=== PATIENT | female | born 1980 | race Caucasian/White ===

== ENCOUNTER 2016-03-16 11:49 | Outpatient (CLI) | payer OTHER ==
[2016-03-16 12:14] LABS: #Basophils 0.1 thou/uL (0.0-0.2); #Eosinphils 0.4 thou/uL (0.0-0.7); #Lymphocytes 3.1 thou/uL (1.20-3.40); #Monocytes 0.6 thou/uL (0.11-0.59); #Neutrophils 4.7 thou/uL (1.40-6.50); %Basophils 1.2 % (0.0-1.0); %Eosinophils 4.6 % (0.0-10.0); %Monocytes 7.1 % (0.0-10.0); Hematocrit 44.8 % (36.0-47.0); Mean Platelet Volume 6.5 fL (7.4-10.4); Red Blood Cell (RBC) Count 5.24 mill/uL (4.20-5.40)
[2016-03-16 12:28] LABS: ALT (SGPT) 20 U/L (0-55); AST (SGOT) 18 U/L (5-34); Alkaline Phosphatase 106 U/L (40-150); Anion Gap 15 mmol/L (10-20); BUN (Urea Nitrogen) 11 mg/dL (7.0-18.7); Bilirubin, Total 0.4 mg/dL (0.2-1.2); Calc. Creatinine Clearance 0 mL/min (70-130); Calcium 9.3 mg/dL (7.8-10.44); Carbon Dioxide 24 mmol/L (22-29); Chloride 107 mmol/L (98-107); Estimated GFR-MDRD 76; Globulin 3.3 g/dL (2.4-3.5); LDL Cholesterol, Calculated 158 mg/dL; Protein, Total 7.7 g/dL (6.0-8.3)
== END 2016-03-16 11:50 | disposition home or self-care (01) ==
LOC: BURLAB 11:49
PROVIDERS: ATTEND Family Medicine
DX: Z00.00 Encounter for general adult medical examination without abnormal findings (principal)
CPT/HCPCS: 36415; 80053; 80061; 84443; 85025

== ENCOUNTER 2016-06-10 08:27 | Outpatient (CLI) | payer OTHER | END 2016-06-10 08:28 | LOC: LABLEX 08:27 | PROVIDERS: ATTEND Family Medicine | DX: R10.30 Lower abdominal pain, unspecified (principal) | CPT/HCPCS: 87086 ==

== ENCOUNTER 2016-06-10 08:38 | Outpatient (CLI) | payer OTHER ==
--- NOTE | 2016-06-10 20:26 | ULT ---
ABDOMINAL ULTRASOUND: 06/10/16 Ultrasonography of the abdomen was performed for low abdominal pain. Review of an 10/04/08 ultrasound was done. The liver is generous in size measuring between 15 and 16 cm in length. It is not seen well internal ly, but no gross lesions were seen. The gallbladder contains gallstones. The wall is 3 mm thick. The common bile duct is 7 mm wide, which is slightly large. The pancreas is seen incompletely, but the visible areas were normal. The aorta and IVC were unremarkable. The right kidney was 10.5 cm in hien th and the left was 12.2 cm. Both appear normal. The spleen is normal in size. IMPRESSION: 1. Multiple gallstones, present previously. Gallbladder wall is slightly thick and common bile duct is slighty large. 2. Borderline hepatic size. POS: HOME
--- NOTE | 2016-06-10 20:32 | ULT ---
PELVIC ULTRASOUND WITH TRANSVAGINAL IMAGING 06/10/16 Ultrasonography of the pelvis was performed for evaluation of pelvic pain. Initial images were done with the abdominal transducer and anatomy was seen very poorly. This was followed with the endovagin al probe which was better able to define detail, though it is still less than optimal. The uterus grossly appears normal and measures 7.9 x 4.4 x 3.8 cm. The endometrium is a normal 6 mm in width. The right ovary was 2.5 cm in length and the left was 1.6 cm. No mass or cysts were seen in either. Blood flow was present in each. A small Nabothian cyst was seen at the cervix that measured about 1 cm in size. There was no substan tial free fluid. IMPRESSION: No significant pelvic findings. POS: HOME
== END 2016-06-10 08:39 | disposition home or self-care (01) ==
LOC: BURULT 08:38
PROVIDERS: ATTEND Family Medicine
DX: R10.31 Right lower quadrant pain (principal); R10.2 Pelvic and perineal pain; K80.20 Calculus of gallbladder without cholecystitis without obstruction; K83.8 Other specified diseases of biliary tract
CPT/HCPCS: 76700; 76856

== ENCOUNTER 2020-02-23 11:13 | Emergency (ER) | payer BC ==
[2020-02-23 11:46] LABS: Bilirubin Small (Negative); Blood, Urine Small (Negative); Clarity Cloudy (Clear); Glucose, Urine (Dipstick) Negative (Negative); Ketone, Urine Negative (Negative); Leukocyte Negative (Negative); Nitrite Negative (Negative); Protein, Urine (Dipstick) Trace mg/dL (Neg-Trace); Specific Gravity, Urine 1.025 (1.002-1.036); Urobilinogen 0.2 mg/dL (Less than 2); pH, Urine 5.5 (5.0-9.0)
[2020-02-23 11:55] LABS: Bacteria/HPF 3+ HPF (None Seen); Mucous/LPF 4+ LPF (<2+)
[2020-02-23 12:06] LABS: #Lymphocytes 1.8 thou/uL (1.20-3.40); %Basophils 0.2 % (0.0-1.0); %Eosinophils 0.1 % (0.0-10.0); %Monocytes 5.7 % (0.0-10.0); %Neutrophils 84.2 % (42.0-75.0); Hemoglobin 14.4 g/dL (12.0-16.0); Mean Corpuscular HGB CONC 32.6 g/dL (32.0-36.0); Mean Corpuscular Hemoglobin 27.9 pg (27.0-31.0); Mean Corpuscular Volume 85.4 fL (78.0-98.0); Mean Platelet Volume 7.5 fL (7.4-10.4); Platelet Count 273 thou/uL (130-400); Red Blood Cell (RBC) Count 5.18 mill/uL (4.20-5.40); White Blood Cell (WBC) Count 17.8 thou/uL (4.8-10.8)
[2020-02-23 12:20] LABS: ALT (SGPT) 26 U/L (8-55); AST (SGOT) 14 U/L (5-34); Albumin 4.3 g/dL (3.5-5.0); Alkaline Phosphatase 86 U/L (40-110); Anion Gap 16 mmol/L (10-20); BUN (Urea Nitrogen) 7 mg/dL (7.0-18.7); Bilirubin, Total 0.7 mg/dL (0.2-1.2); Calc. Creatinine Clearance 0 mL/min (70-130); Calcium 9.2 mg/dL (7.8-10.44); Carbon Dioxide 22 mmol/L (22-29); Chloride 103 mmol/L (98-107); Globulin 3.6 g/dL (2.4-3.5); Glucose 125 mg/dL (70-105); Lipase 14 U/L (8-78); Protein, Total 7.9 g/dL (6.0-8.3); Sodium 137 mmol/L (136-145)
--- NOTE | 2020-02-23 12:34 | CT ---
CT ABDOMEN AND PELVIS WITHOUT CONTRAST: 02/23/20 FINDINGS: PELVIS: The lung bases are clear. The liver, spleen, pancreas and adrenal glands are unremarkable in appearance within the limitations of a noncontrast study. The aorta shows no dilation. The gallbladder contains multiples gallstones, the largest measuring 2.5 and 3.0 cm respectively. The re is no thickening of the gallbladder wall or surrounding inflammatory change. Regarding the kidneys there are a couple of nonobstructing calculi in the upper pole of the left kidney. There is probably some early stone formation in the right. In neither case is there a sign of obstruction or ureteral calculi. The major finding on this study is an area of inflamed sigmoid colon. There is considerable inflammat ory change in the soft tissues around it but no focal abscess or fluid collection. There are a few sm all diverticula present, so the findings are presumed to be due to acute diverticulitis rather than c olitis. No free air or free fluid is seen in the abdomen or pelvis. PELVIS: Remarkable for the sigmoid findings only. No pelvic masses or other acute changes are seen as deborah from what is mentioned above. IMPRESSION: 1. Sigmoid diverticulitis. 2. Gallstones. 3. Nonobstructing left renal calculi. Report called to Dr. Mccall at 1218 hours on 02/23/20. CODE CR POS: HOME
[2020-02-23] MEDS ORDERED: Ondansetron PF 4 MG/2 ML Vial ONE (12:39)
[2020-02-23] MEDS ORDERED: metroNIDAZOLE 500 MG/100 ML BAG ONE (12:39)
[2020-02-23] MEDS ORDERED: Ketorolac Tromethamine 30 MG/ML VIAL ONE (12:39)
[2020-02-23] MEDS ORDERED: Cefepime 2 GM VIAL ONE (12:39)
[2020-02-23] MEDS ORDERED: Morphine 2 MG/ML VIAL ONE (12:39)
[2020-02-23] MEDS ORDERED: Sodium Chloride 0.9% 100 ML ONE (12:41)
== END 2020-02-23 14:25 | disposition short-term general hospital (02) ==
LOC: BURERS 11:13
DX: K57.20 Diverticulitis of large intestine with perforation and abscess without bleeding (principal); E28.2 Polycystic ovarian syndrome
CPT/HCPCS: 74176; 80053; 81003; 81015; 83690; 85025; 96365; 96367; 96375; J0692; J1885; J2270; J2405; J3490

== ENCOUNTER 2020-10-14 09:54 | Outpatient (CLI) | payer BC ==
[2020-10-14] MEDS ORDERED: Iopamidol 370 76% 100 ML VIAL ONE (11:34)
== END 2020-10-14 09:55 | disposition home or self-care (01) ==
LOC: BURCT 09:54
PROVIDERS: ATTEND Internal Medicine Gastroenterology
DX: K80.20 Calculus of gallbladder without cholecystitis without obstruction (principal); K57.32 Diverticulitis of large intestine without perforation or abscess without bleeding; K21.9 Gastro-esophageal reflux disease without esophagitis; R10.32 Left lower quadrant pain; N83.8 Other noninflammatory disorders of ovary, fallopian tube and broad ligament
CPT/HCPCS: 74177; Q9967